=== PATIENT | female | born 1980 | race Caucasian/White ===

== ENCOUNTER 2018-10-11 09:29 | Day surgery (SDC) | payer OTHER ==
[2018-10-11] MEDS ORDERED: FENTAnyl 50 MCG/ML VIAL (11:15)
[2018-10-11] MEDS ORDERED: MIDAZOLAM 1 MG/ML 2 ML INJ ×2 (11:16)
== END 2018-10-11 12:04 | disposition home or self-care (01) ==
LOC: GIL 09:29
DX: D12.2 Benign neoplasm of ascending colon (principal)
CPT/HCPCS: 45385; 84703; 88305